=== PATIENT | male | born 1975 | race Caucasian/White ===

== ENCOUNTER 2016-09-10 08:32 | Outpatient (CLI) | payer OTHER ==
[~2016-09-10] VITALS: Ht 182.9 cm; Wt 63.6 kg
--- NOTE | ~2016-09-10 | HEMODYNAMI ---
PATIENT:SERENITY WILLSON MEDICAL RECORD: [id number] : 73 LOCATION:D.CAT ADMISSION DATE: 09/10/16 Generatedon:09/10/201610:57 Patient name: SERENITY WILLSON Patient #: [id number] : 1975 Date of study: 09/10/2016 Page: Of Hemodynamic Procedure Report Patient Data Patient Demographics Procedure consent was obtained First Name: SERENITY Gender: Male Last Name: ANAMIKA : 1975 Patient #: [id number] Age: 41 year(s) Race: Unknown SSN: [id number] Additional ID: [id number] Contact details Address: [address] [place] [address] State: [place] City: [facility] Zip code: [address] Past Medical History Allergies Allergen Reaction Date Comments Reported Other allergy 09/10/2016 codeine Admission Admission Data Admission Date: 09/10/2016 Admission Time: 8:32 Arrival Date: 09/10/2016 Arrival Time: 0:00 Admit Source: Other Insurance Payor: Private health insurance Height (in.): 72 BSA: 1.84 (m2) Height (cm.): 182.88 BMI: 19.12 (kg/m2) Weight (lbs.): 141 Weight (kg.): 63.96 Lab Results Lab Result Date: 09/10/2016 Lab Result Time: 0:00 Biochemistry Name Units Result Min Max BUN mg/dl 11 --(-*--)-- 7 18 Creatinine mg/dl 0.8 --(-*--)-- 0.6 1.3 CBC Name Units Result Min Max Hemoglobin g/dl 16.7 --(---*)-- 13.5 17.5 Procedure Procedure Types Cath Procedure Diagnostic Procedure LHC LHC w/Coronaries Miscellaneous Procedures Moderate Sedation up to 15 minutes Procedure Description Procedure Date Procedure Date: 09/10/2016 Procedure Start Time: 10:48 Procedure End Time: 10:55 Procedure Staff Name Function Hermes Ames MD Performing Physician Kinjal Estrella RT Scrub Lyudmila Kern RN Nurse Mireya Anthony RT Monitor Procedure Data Cath Procedure Fluoroscopy Diagnostic fluoroscopy Total fluoroscopy Time: 1 time: 1 min min Diagnostic fluoroscopy Total fluoroscopy dose: 120 dose: 120 mGy mGy Contrast Material Contrast Material Type Amount (ml) Isovue 300 47 Entry Location Entry Primary Successful Side Size Upsize Upsize Entry Closure Sharp ccessful Closure Location (Fr) 1 (Fr) 2 (Fr) Remarks Device Remarks Radial Right 6 Fr Mechanical artery Short Compression Estimated blood loss: 10 ml Diagnostic catheters Device Type Used For End Catheter Placement Terumo 5Fr [place] 110cm Procedure catheter Procedure Complications No complications Procedure Medications Medication Administration Route Dosage Oxygen NC 2 l/min Heparin Flush Bag added to field 2 bags (1000units/500ml NS) 0.9% NaCl I.V. 100 ml/hr Lidocaine 2% added to field 20 Versed I.V. 1 mg Fentanyl I.V. 50 mcg Versed I.V. 1 mg Fentanyl I.V. 50 mcg Radial Cocktail I.A. 1 syringe (Verapomil 2mg/Nitro 400mcg/Heparin 1500units) Versed I.V. 1 mg Fentanyl I.V. 50 mcg Hemodynamics Rest BSA: 1.84 (m2) HGB: 16.7 (g/dl) O2 Consumption: Estimated: 212.13 (ml/min) O2 Co nsumption indexed: Estimated:115.29 (ml/min/m) Heart Rate: 53 (bpm) Snapshots Pre Cath Intra NCS Post Cath Vital Signs Time Heart Resp SPO2 etCO2 [id number] NIBP Rhythm Pain Sedation Rate (ipm) (%) (mmHg) (mmHg) (mmHg) Status Level (bpm) 10:38:44 59 20 99 0 0 106/60(83) NSR 0 (11) 10(A) , No pain 10:42:50 51 19 99 0 0 106/64(82) NSR 0 (11) 10(A) , No pain 10:46:58 53 16 98 0 0 106/57(82) NSR 0 (11) 9(A) , No pain 10:51:06 112 16 98 0 0 102/58(78) NSR 0 (11) 9(A) , No pain 10:55:13 61 16 97 0 0 100/52(70) NSR 0 (11) 10(A) , No pain 10:56:17 60 16 97 0 0 98/50(67) NSR 0 (11) 10(A) , No pain Medications Time Medication Route Dose Verified Delivered Reason Notes Effectiveness by by 10:37:10 Oxygen NC 2 l/min Hermes Coreas used for Hui Kern RN procedure 10:37:28 Heparin Flush added 2 bags Hermes Mirza used for Bag to Hui Ames MD procedure (1000units/500ml field NS) 10:37:38 0.9% NaCl I.V. 100 Hermes Coreas Per ml/hr Hui Kern RN physician 10:40:54 Lidocaine 2% added 20ml Hermes Mirza for local to vial Hui Ames MD anesthetic field 10:42:29 Versed I.V. 1 mg Hermes Coreas for sedation Hui Kern RN 10:42:34 Fentanyl I.V. 50 mcg Hermes Coreas for sedation Hui Kern RN 10:46:00 Versed I.V. 1 mg Hermes Coreas for sedation Hui Kern RN 10:46:05 Fentanyl I.V. 50 mcg Hermes Coreas for sedation Hui Kern RN 10:50:18 Radial Cocktail I.A. 1 Hermes Mirza for (Verapomil syringe Hui Ames MD vasodilation 2mg/Nitro 400mcg/Heparin 1500units) 10:50:22 Versed I.V. 1 mg Hermes Coreas for sedation Hui Kern RN 10:50:26 Fentanyl I.V. 50 mcg Hermes Coreas for sedation Hui Kern RN Procedure Log Time Note 10:22:27 Patient Height : 72 cm 10:22:36 Patient Weight : 141 kg 10:22:36 Admit Source: Other 10:22:45 Insurance Payor : Private health insurance 10:22:49 Arrival Date: 09/10/2016 12:00:00 AM 10:23:01 Procedure type changed to Cath procedure, Diagnostic procedure, LHC, LHC w/Coronaries, Miscellaneous Procedures, Moderate Sedation up to 15 minutes 10:23:04 Diagnostic Cath Status : Elective 10:23:30 Lyudmila Kern RN sent for patient. Start room use. 10:23:31 Time tracking: Regular hours 10:23:36 Plan of Care:Hemodynamics will remain stable., Cardiac rhythm will remain stable., Comfort level will be maintained., Respiratory function will remain adequate., Patient/ family verbilizes understanding of procedure., Procedure tolerated without complication., Recovers from procedure without complications.. 10:37:10 Oxygen 2 l/min NC was administered by Lyudmila Kern RN; used for procedure; 10:37:28 Heparin Flush Bag (1000units/500ml NS) 2 bags added to field was administered by Hermes Ames MD; used for procedure; 10:37:30 Patient received from Pre/Post Procedure Room to CCL 1 Alert and oriented. Tansferred to table in Supine position. 10:37:31 Warm blankets applied, and delgado hugger turned on for patient comfort. 10:37:32 Correct patient and procedure confirmed by team. 10:37:33 Signed procedure consent form obtained from patient. 10:37:35 ECG and BP/O2 sat monitors applied to patient. 10:37:36 Vital chart was started 10:37:37 Baseline sample Acquired. 10:37:38 0.9% NaCl 100 ml/hr I.V. was administered by Lyudmila Kern RN; Per physician; 10:37:42 Rhythm: sinus rhythm 10:37:44 Full Disclosure recording started 10:38:00 H&P Date Dictated: 09/04/2016 Within 30 days and on chart., H&P Addendum completed by physician on day of procedure. (MUST COMPLETE FOR ALL OUTPATIENTS). 10:38:01 Pre-procedure instructions explained to patient. 10:38:03 Family in waiting room. 10:38:06 Patient NPO since Midnight. 10:38:20 Patient allergic to Other allergycodeine 10:38:24 Is the patient allergic to Iodine/contrast media? No. 10:38:25 Is patient on blood thinner?Yes 10:38:29 ACC The patient was administered the following blood thiners within the last 24 hours: ACCPlavix 10:38:32 Patient diabetic? No. 10:38:36 Snore? Yes 10:38:38 Sleep apnea? No 10:38:43 Airway obstruction? Yes COPD 10:38:49 Patient pain scale 0/10 ?. 10:38:58 IV patent on arrival in left hand with 0.9% NaCl at O. 10:40:03 Hemodynamic formulas in Rest were re-calculated based on hemoglobin value from 06/08/2016 12:00:00 AM 10:40:24 Lab Result : BUN 11 mg/dl ::24 Lab Result : Creatinine 0.8 mg/dl 10:40:24 Lab Result : Hemoglobin 16.7 g/dl 10:40:29 Lab results completed and on chart. 10:40:33 Right Radial & Right Groin area was prepped with chlora-prep and draped in sterile fashion 10:40:35 Alarms reviewed by R. N. 10:40:35 Sharps counted by scrub and verified by R.N. 10:40:36 Physician paged 10:40:37 Physician arrived 10:40:40 --------ALL STOP TIME OUT------ 10:40:41 Final Timeout: patient, procedure, and site verified with staff and physician. All members of the team are in agreement. 10:40:43 Right Radial & Right Groin site verified by team. 10:40:47 Physical assessment completed. ASA score P 2 - A patient with mild systemic disease as per Hermes Ames MD. 10:40:51 Sedation plan: IV Moderate Sedation Versed, Fentanyl 10:40:54 Lidocaine 2% 20ml vial added to field was administered by Hermes Ames MD; for local anesthetic; 10:41:01 Use device set Radial Dx 10:41:03 Acist Syringe opened to sterile field. 10:41:03 Medline Cath Pack opened to sterile field. 10:41:04 Bag Decanter opened to sterile field. 10:41:04 Terumo 6Fr Slender Glidesheath opened to sterile field. 10:41:04 St [place] 260cm J .035 wire opened to sterile field. 10:41:05 Acist Hand Control opened to sterile field. 10:41:05 Acist Manifold opened to sterile field. 10:41:06 Tegaderm 4 x 4 opened to sterile field. 10:42:29 Versed 1 mg I.V. was administered by Lyudmila Kern RN; for sedation; 10:42:34 Fentanyl 50 mcg I.V. was administered by Lyudmila Kern RN; for sedation; 10:44:21 Zero performed for pressure channel P1 10:46:00 Versed 1 mg I.V. was administered by Lyudmila Kern RN; for sedation; 10:46:05 Fentanyl 50 mcg I.V. was administered by Lyudmila Kern RN; for sedation; 10:47:46 Zero performed for pressure channel P1 10:47:52 Zero performed for pressure channel P1 10:48:01 Procedure started. 10:48:06 Local anesthetic to right radial artery with Lidocaine 2% by Hermes Ames MD.INITIAL ACCESS ONLY 10:49:31 A 6 Fr Short sheath was inserted into the Right Radial artery 10:49:56 A Terumo 5Fr [place] 110cm catheter was advanced over the wire and used for Procedure. 10:50:18 Radial Cocktail (Verapomil 2mg/Nitro 400mcg/Heparin 1500units) 1 syringe I.A. was administered by Hermes Ames MD; for vasodilation; 10:50:18 LV angiography performed. 10:50:22 Versed 1 mg I.V. was administered by Lyudmila Kern RN; for sedation; 10:50:26 Fentanyl 50 mcg I.V. was administered by Lyudmila Kern RN; for sedation; 10:51:36 EF : 60 % 10:51:40 LCA angiography performed. 10:52:47 RCA angiography performed. 10:53:05 Terumo TR Band Standard opened to sterile field. 10:53:09 Catheter removed. 10:53:35 Sheath removed intact; hemostasis achieved with Mechanical Compression to the Right Radial artery. 10:53:39 Procedure ended.(Physican Out) 10:53:54 Fluoroscopy time 01.00 minutes. 10:54:04 Fluoroscopy dose: 120 mGy 10:54:04 Flurop Dose total: 120 10:54:08 Contrast amount:Isovue 300 47ml. 10:54:11 Sharps counted by scrub and verified by R.N. 10:54:14 TR band inflated with 10cc of air. 10:54:16 Insertion/operative site no bleeding no hematoma. 10:54:18 Post Procedure Pulses reassessed and unchanged 10:54:21 Post-procedure physical assessment completed. ASA score P 2 - A patient with mild systemic disease as per Hermes Ames MD. 10:54:26 Post procedure rhythm: unchanged. 10:54:29 Estimated blood loss: 10 ml 10:54:31 Post procedure instruction explained to patient.Patient verbalizes understanding. 10:54:38 Procedure and supply charges have been captured, reviewed, submitted and are correct. 10:54:56 Procedure Complication : No complications 10:54:59 Vital chart was stopped 10:55:00 See physician's report for complete and final results. 10:55:02 Report given to Pre/Post Procedure Room. 10:55:05 Patient transfered to Pre/Post Procedure Room with Stretcher. 10:55:08 Procedure ended. 10:55:08 Full Disclosure recording stopped 10:55:10 End room use (Document Last) Device Usage Item Name Manufacture Quantity Catalog Hospital Part Current Minimal Lot# / Number Charge Number Stock Stock Serial# Code Acist Acist 1 [id number] [id number] [id number] [id number] 20 Syringe [employer] Medline Cardinal 1 [id number] 540218 21360 865538 5 Cath Pack Health Bag Microtek 1 2002S 210273 69156 864576 5 Decanter [employer] Inc. Terumo 6Fr Terumo 1 [id number] 302332 633899 683329 [address] [place] St [place] 1 074562 538183 212128 781457 30 260cm J .035 wire Acist Hand Acist 1 41621 661249 281960 581134 5 Control [employer] Inc Acist Acist 1 34404 652744 207025 000670 5 Manifold [employer] Inc Tegaderm 4 3M 1 1626W 523171 523889 335536 5 x 4 Terumo 5Fr Terumo 1 40-5073 984813 102917 395351 5 [place] 110cm catheter Terumo TR Terumo 1 [id number] 602036 385371 928253 40 Band Standard Signature Audit Issue Stage Time Signature Unsigned Intra-Procedure 09/10/2016 Mireya Anthony 10:57:43 AM RT(R) Signatures Monitor : Mireya Anthony Signature : RT Date : Time : [facility] [address] [place] [address]
[2016-09-10] MEDS ORDERED: BAYER CHEWABLE81 MG PO (09:07)
[2016-09-10 09:09] VITALS: BP 120/65; Ht 182.9 cm; Wt 63.6 kg
[2016-09-10 09:23] LABS: BASOPHILS 0.2 % (0.0-2.0); EOSINOPHILS 0.7 % (0-7); HEMATOCRIT 49.6 % (42.0-54.0); HEMOGLOBIN 16.7 g/dL (13.5-17.5); IMMATURE GRANULOCYTES 0.2 % (0-5); LYMPHOCYTES 12.5 % (15-50); MCH 31.5 pg (26.0-34.0); MCHC 33.7 g/dL (31.0-37.0); MCV 93.6 fL (80.0-100.0); MEAN PLATELET VOLUME 12.3 fL (7.4-10.4); MONOCYTES 7.2 % (2-11); NEUTROPHILS 79.2 % (40-80); PLATELET COUNT 198 10x3/uL (130-400); RDW 12.9 % (11.5-14.5); WBC 12.7 10x3/uL (4.8-10.8)
[2016-09-10 09:44] LABS: CALC OSMOLALITY 278 mosm/kg (275-300); CALCIUM 9.3 mg/dL (8.5-10.1); CHLORIDE - SERUM 104 mmol/L (98-107); CREATININE - SERUM 0.8 mg/dL (0.6-1.3); GLUCOSE 83 mg/dL (74-106); POTASSIUM - SERUM 4.2 mmol/L (3.5-5.1); SODIUM 141 mmol/L (136-145); UREA NITROGEN 11 mg/dL (7-18); eGFR NON AFRICAN AMERICAN > 90 mL/min (90-120)
--- NOTE | 2016-09-10 11:54 | NUR ---
1130-TR BAND INTACT, NO BLEEDING AT SITE, RESTING WITH FAMILY AT SIDE
--- NOTE | 2016-09-10 15:02 | NUR ---
1200-NO CHANGES NOTED
--- NOTE | 2016-09-10 15:02 | NUR ---
1310-IV D'C WITH CATH TIP INTACT, WRITTEN AND VERBAL INSTRUCTIONS GIVEN TO PT AND SON. TR BAND OFF AND BAND AID APPLIED.
--- NOTE | 2016-09-19 10:19 | OP ---
PATIENT NAME: SERENITY WILLSON MEDICAL RECORD: [id number] :73 LOCATION:D.CAT ADMISSION DATE: SURGEON: SHEELA SLAUGHTER MD DATE OF OPERATION: 09/10/2016 PROCEDURES: 1. Left heart catheterization. 2. Selective coronary angiography. 3. Left ventriculogram. PROCEDURE IN DETAIL: After informed consent was obtained and after detailed explanation of risks, benefits as well as alternative therapies, the patient elected to proceed with angiogram and heart catheterization. The right radial area was prepped and draped in normal sterile fashion. The right radial artery was cannulated via modified Seldinger technique with placement of 5-Thai sheath. All catheters exchanged through this sheath. FINDINGS: Left ventriculogram was performed in the standard 30-degree WALSH view reveals good cardiac wall motion throughout all segments. Overall ejection fraction estimated at 60%. SELECTIVE CORONARY ANGIOGRAPHY: Left main, left anterior descending, left circumflex, and right coronary artery are all smooth-walled vessels with no angiographic evidence of coronary artery disease. OVERALL IMPRESSION: 1. No angiographic evidence of coronary artery disease. 2. Normal left heart pressures. 3. Normal left ventricular systolic function. Chest pain is noncardiac in etiology. No further cardiac workup needs to be ascertained. TRANSINT:[id number] Voice Confirmation ID: [id number] DOCUMENT ID: [id number] SHEELA SLAUGHTER MD at 1019 CC: [id number] DICTATION DATE: 09/10/16 1056 INSPECTOR ELEVATORS: 09/10/16 1136 DEP CLI 09/10/16 [place] [address]
== END 2016-09-10 13:15 | disposition home or self-care (01) ==
LOC: D.CATH 08:32
PROVIDERS: Internal Medicine Interventional Cardiology
DX: I20.9 Angina pectoris, unspecified (principal); R94.30 Abnormal result of cardiovascular function study, unspecified